=== PATIENT | female | born 1965 | race American Indian/Alaskan Native ===

== ENCOUNTER 2024-02-27 15:16 | Emergency (ER) | payer OTHER, SELFPAY ==
[2024-02-27 15:18] VITALS: BP 116/73
[2024-02-27 15:21] VITALS: BP 116/73
[2024-02-27 15:23] VITALS: BMI 24.0
[2024-02-27 15:25] LABS: Glucose - Point of Care 122 mg/dl (70-99)
[2024-02-27 15:38] LABS: % Basophils 0.5 % (0-2); % Eosinophils 1.5 % (0-6); % Immature Granulocytes 0.2 % (0-0.5); % Lymphocytes 12.7 % (20.5-51.1); % Monocytes 11.8 % (1.7-9.3); % Neutrophils 73.3 % (42.2-75.2); Absolute Eosinophils 0.1 10^3/uL (0-0.7); Hematocrit 39.3 % (37.0-47.0); Mean Corp Hgb Conc. 33.1 g/dL (33.0-37.0); Mean Corpuscular Volume 93.6 fL (81.0-99.0); Mean Platelet Volume 10.2 fL (7.4-10.4); Nucleated Red Blood Cells % 0 %; Platelet Count 228 10^3/uL (130-400); Red Cell Dist. Width 13.9 % (11.5-14.5); White Blood Cell Count 8.2 10^3/uL (4.8-10.8)
[2024-02-27 15:49] LABS: ALT (SGPT) 22 U/L (0-35); AST (SGOT) 22 U/L (14-36); Albumin 4.2 g/dl (3.5-5.0); Alkaline Phosphatase 60 U/L (38-126); Blood Urea Nitrogen 19 mg/dl (7-17); Carbon Dioxide 21 mmol/L (22-30); Chloride 106 mmol/L (98-107); Estimated Creatinine Clearance 86 ml/min; Glucose 110 mg/dl (70-99); Potassium 3.7 mmol/L (3.5-5.1); Sodium 137 mmol/L (135-145); Total Bilirubin 0.3 mg/dl (0.2-1.3); eGFR > 60.00
[2024-02-27 16:00] VITALS: BP 118/69
[2024-02-27 16:00] LABS: Troponin I < 0.012 ng/ml
--- NOTE | 2024-02-27 16:07 | ED.GENMED ---
History of Present Illness
<Ivan Huang, DO - Last Filed: 02/27/24 16:09>
General
Chief Complaint: Fainting/Passed Out
Time Seen by Provider: 02/27/24 15:21
<Diane Oliveira MD, Resident - Last Filed: 02/27/24 22:24>
General
Source: patient and family
History of Present Illness
History of Present Illness:
This is a 58-year-old female patient with PMH of Sjogren's disease, rheumatoid arthritis and hypothyroidism who presents to the ED after fainting. She states that she was at a friend's birthday democr[employer] an hour ago when she did feel dizzy and weak and
started to fall. She states that someone was able to catch her she had not hit her head. She says that she lost consciousness for around 2 to 3 minutes before slowly waking up. Her denies noticing any seizure activity. She denies any
nausea, vomiting or vision changes. She does admit to having a mild headache on the left side of her head show described as a sharp pain. She denies CP, palpitations or shortness of breath at the time of episode. She states that yesterday she has
a rowing machine at home and after around 6-minute she started to feel short of breath and she had stopped exercising. She had a similar syncopal episode a year ago and she had followed up with the exercise science instructor where she had an extensive workup
which was unremarkable. She was suggested to have a loop recorder procedure but she declined at that time.
Past History
<Diane Oliveira MD, Resident - Last Filed: 02/27/24 22:24>
Past History
ED Past Medical History: Hypothyroidism and Other (Rheumatoid arthritis, Sjogren's )
ED Past Surgical History: None
Social History
Tobacco: Non-smoker
Alcohol: Occasional
Drug: None
Personal:
Living: with family
Review of Systems
<Diane Oliveira MD, Resident - Last Filed: 02/27/24 22:24>
Review of Systems
Constitutional: Denies fever or chills
Cardiac: Denies chest pain or palpitations
ABD/GI: Denies abdominal pain or vomiting
Neurological: Reports headache
Phy Exam
<Diane Oliveira MD, Resident - Last Filed: 02/27/24 22:24>
General Physical Exam
General Presentation: well appearing and no apparent distress
Cardiovascular Exam
Cardiovascular Exam: regular rate/rhythm and no murmur
Heart Sounds: normal
Pulmonary Exam
Pulmonary Exam: lungs clear, no respiratory distress and no crackles
Gastrointestinal Exam
Gastrointestinal Exam: non tender, soft and non distended
Neurological Exam
Neurological Exam: oriented x3
Musculoskeletal Exam
Musculoskeletal Exam: no edema
Skin Exam
Skin Exam: warm/dry
Psychiatric Exam
Psychiatric Exam: normal mood/affect
Course
<Ivan Huang, DO - Last Filed: 02/27/24 16:09>
Orders/Labs/Results
Orders:
Orders
02/27/24 15:17
Electrocardiogram (*1) Urgent
Reason for Study: Syncope
02/27/24 15:18
EKG- Treatment ONCE
02/27/24 15:27
Complete Blood Count/With Diff Urgent
Comprehensive Metabolic Panel Urgent
Troponin I Urgent
02/27/24 15:49
CT Head W/o Iv Contrast Urgent
Comment:
Reason For Exam: syncope
Abnormal Lab Results
02/27/24 02/27/24
15:23 15:27
Absolute Lymphs (auto) 1.0 L 10^3/uL
(1.2-3.4)
Absolute Monos (auto) 1.0 H 10^3/uL
(0.1-0.6)
Lymphocytes % 12.7 L %
(20.5-51.1)
Monocytes % 11.8 H %
(1.7-9.3)
Carbon Dioxide 21 L mmol/L
(22-30)
BUN 19 H mg/dl
(7-17)
Glucose 110 H mg/dl
(70-99)
POC Glucose 122 H mg/dl
(70-99)
02/27/24 15:27
02/27/24 15:27
Vital Signs
Initial and Last Documented VS:
Initial Vital Signs
Temp Pulse Resp BP Pulse Ox
97.7 F 80 16 116/73 98
02/27/24 15:18 02/27/24 15:18 02/27/24 15:18 02/27/24 15:18 02/27/24 15:18
Last Documented Vital Signs
Temp Pulse Resp BP Pulse Ox
97.7 F 81 14 127/76 100
02/27/24 15:18 02/27/24 17:00 02/27/24 17:00 02/27/24 17:00 02/27/24 17:00
<Diane Ninoska Oliveira MD, Resident - Last Filed: 02/27/24 22:24>
Orders/Labs/Results
Orders:
Orders
02/27/24 15:17
Electrocardiogram (*1) Urgent
Reason for Study: Syncope
02/27/24 15:18
EKG- Treatment ONCE
02/27/24 15:27
Complete Blood Count/With Diff Urgent
Comprehensive Metabolic Panel Urgent
Troponin I Urgent
02/27/24 15:49
CT Head W/o Iv Contrast Urgent
Comment:
Reason For Exam: syncope
Abnormal Lab Results
02/27/24 02/27/24
15:23 15:27
Absolute Lymphs (auto) 1.0 L 10^3/uL
(1.2-3.4)
Absolute Monos (auto) 1.0 H 10^3/uL
(0.1-0.6)
Lymphocytes % 12.7 L %
(20.5-51.1)
Monocytes % 11.8 H %
(1.7-9.3)
Carbon Dioxide 21 L mmol/L
(22-30)
BUN 19 H mg/dl
(7-17)
Glucose 110 H mg/dl
(70-99)
POC Glucose 122 H mg/dl
(70-99)
02/27/24 15:27
02/27/24 15:27
Vital Signs
Initial and Last Documented VS:
Initial Vital Signs
Temp Pulse Resp BP Pulse Ox
97.7 F 80 16 116/73 98
02/27/24 15:18 02/27/24 15:18 02/27/24 15:18 02/27/24 15:18 02/27/24 15:18
Last Documented Vital Signs
Temp Pulse Resp BP Pulse Ox
97.7 F 81 14 127/76 100
02/27/24 15:18 02/27/24 17:00 02/27/24 17:00 02/27/24 17:00 02/27/24 17:00
<Diane Oliveira MD, Resident - Last Filed: 02/27/24 22:24>
*Critical Care Note
Total Time (30-74mins, 75-104mins- exclusive of procedures): Not Applicable
<Diane Oliveira MD, Resident - Last Filed: 02/27/24 22:24>
Update Note
Update Note:
Patient is afebrile with mild left sided headache at the time of exam. CBC/CMP/troponin unremarkable. CT Head without contrast ordered with no significant acute findings. EKG with normal sinus rhythm. Due to negative workup and patient
hemodynamically stable, she is stable for discharge and advised to follow up with exercise science instructor for further workup of recurrent syncope.
ED Attending Note
<Ivan Huang, DO - Last Filed: 02/27/24 16:09>
ED Attending Note
Patient seen and examined by attending physician: Yes
I performed a history and physical exam of patient and discussed management with resident, I reviewed resident's note and agree with documented findings and plan of care.: Yes
ED Attending Note:
I have seen and evaluated the patient with a [id number] encounter. I have spoken to the resident and involved in the medical history, the physical exam, medical decision making.
Evaluation and management service: agree unless noted differently below.
Results interpretation: agree unless noted differently below.
Focused HPI: 4-year-old female presenting with a syncopal event. This occurred while she was at a birthday democr[employer]. She was standing and then she felt lightheaded and felt the voices become distant. She went to the floor and states that she
was unconscious. This was only for a minute or 2. She now feels better and denies any complaint. This has happened before in the past over a year ago and she states she had a workup which was all negative. She was told that she would likely
require a loop recorder but she declined at that
Physical exam: Sitting in bed comfortably. Normal finger-nose. Heart regular in rhythm. No evidence of trauma on exam
Medical Decision Making: Will obtain blood work and CT head. EKG shows no cardiac arrhythmia. If workup negative, we discussed follow-up with cardiology to further discuss her recurrent syncope.
-
Portions of this chart may have been created with voice recognition software.� Occasional wrong word or��sound alike� substitutions may have occurred due to the inherent limitations of voice recognition software.
Discharge Plan
Departure
Patient Disposition: Home (Routine Discharge)
Date of Disposition: 02/27/24
Time of Disposition: 17:47
Patient with high blood pressure during this ER visit?: No
Discharge Problem:
Syncope
Referrals:
Dru Fuentes MD [Active] -
Activity Restrictions/Additional Instructions:
If experiencing symptoms such as worsening headache, severe nausea/vomiting or chest pain please return to the ER. Follow-up with your exercise science instructor and PCP within a week for further management of syncopal episode.
Interventions
Interventions:
*Risk Screen - Suicide Last Done: 02/27/24 15:18
*General Assessment Last Done: 02/27/24 15:18
*Neglect/Abuse Screening Last Done: 02/27/24 15:18
*ED COVID-19 Vaccine History Last Done: 02/27/24 17:00
*Nursing Disposition Last Done: 02/27/24 18:12
ED- Cardiac Assessment Last Done: 02/27/24 17:00
ED- Neurological Assessment Last Done: 02/27/24 17:00
Discharge Date and Time
Discharge Date/Time: 02/27/24 18:13
Print Language: [place]
[2024-02-27 17:00] VITALS: BP 127/76
== END 2024-02-27 18:13 | disposition home or self-care (01) ==
LOC: EMR 15:16
PROVIDERS: Emergency Medicine; EMERGENCY PHYSICIAN Student in an Organized Health Care Education/Training Program
DX: R55 Syncope and collapse (principal); R51.9 Headache, unspecified; R06.02 Shortness of breath; W19.XXXA Unspecified fall, initial encounter; E03.9 Hypothyroidism, unspecified; M35.00 Sjogren syndrome, unspecified; M06.9 Rheumatoid arthritis, unspecified; Z88.0 Allergy status to penicillin
CPT/HCPCS: 99284; 70450; 80053; 82962; 84484; 85025; 93005